=== PATIENT | female | born 1960 | race Caucasian/White ===

== ENCOUNTER 2022-07-25 16:23 | Emergency (ER) | payer SELFPAY ==
[2022-07-25 17:17] LABS: ESTIMATED GFR 57 mL/min (>60)
== END 2022-07-25 18:00 | disposition home or self-care (01) ==
LOC: FB.ED 16:23
DX: H81.10 Benign paroxysmal vertigo, unspecified ear (principal)
CPT/HCPCS: 36415; 80053; 85025; 99284